=== PATIENT | female | born 2000 | race African-American/Black ===

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

== ENCOUNTER 2023-01-28 01:09 | Emergency (ER) | payer BC, SELFPAY ==
[2023-01-28 01:45] VITALS: BP 113/64; PULSE 85; RESP 17; TEMP 36.6; O2SAT 100
--- NOTE | 2023-01-28 02:33 | ED.SKABFB ---
HPI - Skin/Abscess/Foreign Bdy General Chief complaint: Skin/Abscess/Foreign Body Stated complaint: foriegn body Time Seen by Provider: 01/28/23 01:58 History of Present Illness HPI narrative: This is a 22-year-old female, with past history of diabetes on insulin, who presents emergency department requesting assistance removing her earrings. She patient states she has had increased pain in the right ear rated 3/10 compared to the left. She states she believes the backs of her earrings became embedded and she has not been able to remove them. Related Data Home Medications Medication Instructions Recorded Confirmed insulin glargine 100 unit/mL (3 10 unit subcut HS 03/27/21 12/24/21 mL) subcutaneous pen (Lantus Solostar U-100 Insulin) insulin lispro 100 unit/mL See Rx Instructions .Route .COMPLEX 12/24/21 12/24/21 subcutaneous pen Allergies Allergy/AdvReac Type Severity Reaction Status Date / Time No Known Allergies Allergy Verified 01/28/23 01:10 Review of Systems Review of Systems: CONSTITUTIONAL: Denies fever, chills, or sweats. ENT: Right ear pain denies rhinorrhea, congestion, sore throat, CARDIOVASCULAR: Denies chest pain, palpitations, or edema. RESPIRATORY: Denies cough or dyspnea. GASTROINTESTINAL: Denies abdominal pain, nausea, vomiting, or diarrhea. GENITOURINARY: Denies dysuria or hematuria. SKIN: Denies rash or itching. MUSCULOSKELETAL: Denies back pain, joint pain, or myalgia. NEUROLOGIC: Denies headache, numbness, dizziness, or weakness. PSYCHIATRIC: Denies anxiety or depression. [facility] Past Medical History Medical History Diabetes Surgical History Surgical History No pertinent past surgical history Family History Family History Grandparent Diabetes mellitus Other Diabetes mellitus Social History Social History Social History: Surrogate decision maker: Tru Lucia, mother. Code status: Full code. Smoking status: Never smoker Alcohol intake: never Substance use: never Substance use type: does not use Additional living arrangements comments: Lives in [place] with her mother. Additional occupation/education comments: She is a senior in high school. Gender identity (if verbalized by the patient): Female Spiritual care concerns: No Exam Narrative: GENERAL: Well-developed, well-nourished, and in no acute distress. HEAD: Normocephalic, atraumatic. EYES: PERRLA and EOMI. ENT: Nares clear, no rhinorrhea or epistaxis. Mucous membranes moist. Oropharynx without tonsillar hypertrophy exudate or other lesions. Nares are present in the earlobe bilaterally. The back of the right earring appears embedded in the lobe. CHEST: Clear to auscultation. No respiratory distress. No wheezes rales or rhonchi HEART: Regular rate and rhythm. No murmur heard. Normal peripheral pulses. ABDOMEN: Soft, nontender, nondistended, normal active bowel sounds. EXTREMITIES: Normal range of motion. No edema. SKIN: Warm, dry, no rash. NEURO: Alert and oriented x3. Moving all 4 limbs purposefully. PSYCH: Normal mood and affect. Course Course Emergency Course: 02:30 - The bilateral earrings were removed using a curved hemostat. The patient tolerated the procedure well. Please see procedure note. Will discharge. I advised the patient on wound care. Discussed return and emergency precautions including signs/symptoms of infection. The patient voiced understanding and is comfortable to plan. All questions answered to her satisfaction. Vital Signs Vital signs: Vital Signs Temperature 97.8 F 01/28/23 01:45 Pulse Rate 85 01/28/23 01:45 Respiratory Rate 17 01/28/23 01:45 Blood Pressure 113/64 01/28/23 01:45 Pulse Oximetry 100
== END 2023-01-28 02:50 | disposition home or self-care (01) ==
PROVIDERS: Emergency Provider Preventive Medicine Aerospace Medicine
DX: S00.451A Superficial foreign body of right ear, initial encounter (principal); S00.452A Superficial foreign body of left ear, initial encounter; E11.9 Type 2 diabetes mellitus without complications; Z79.4 Long term (current) use of insulin; W45.8XXA Other foreign body or object entering through skin, initial encounter
CPT/HCPCS: 69200; 99282